=== PATIENT | female | born 1945 | race Two or more races ===

== ENCOUNTER → 2017-02-26 | Outpatient (CLI) | payer MEDICARE ==
[~2017-02-26] MED LIST: ANAS1TAB PO; GABA-282 PO; LISI10TA4 PO; MULTCAP8 PO
--- NOTE | 2017-02-26 10:42 | REP ---
LEFT KNEE, FIVE VIEWS: HISTORY: Pain. There is no acute fracture or dislocation. There is marked narrowing of the joint spaces with associated osteophyte formation. There is very minimal lateral subluxation of the patella. Ossified densities are present lateral to the distal femur. This represents ligamentous or tendon calcification. IMPRESSION: Degenerative change as described above.
== END ==
LOC: M CLY 09:03
PROVIDERS: ATTEND Nurse Practitioner
DX: M17.12 Unilateral primary osteoarthritis, left knee (principal)
CPT/HCPCS: 73564; G0463

== ENCOUNTER → 2017-03-26 | Outpatient (REF) | payer MEDICARE, BC | LOC: M SFHCCLAY 14:16 | PROVIDERS: ATTEND Nurse Practitioner | DX: R35.0 Frequency of micturition (principal) | CPT/HCPCS: 81002; 87086; G0463 ==

== ENCOUNTER → 2017-04-24 | Outpatient (REF) | payer MEDICARE, BC ==
[2017-04-24 20:44] LABS: BACTERIA, URINE SMALL AMOUNT; RBC, URINE NONE SEEN /hpf (0-3); SQUAMOUS EPITHELIAL CELL URINE SMALL AMOUNT /hpf (SMALL AMT)
[2017-04-24 20:45] LABS: HYALINE CAST, URINE NONE SEEN /lpf (0-1); MICROSCOPIC EXAM PERFORMED
== END ==
LOC: M SMT 16:56
PROVIDERS: ATTEND Specialist
DX: N39.46 Mixed incontinence (principal)
CPT/HCPCS: 81015; 87086; G0463

== ENCOUNTER 2017-04-29 09:45 | Day surgery (SDC) | payer MEDICARE, BC ==
[~2017-04-29] VITALS: Ht 172.7 cm; Wt 105.2 kg
[~2017-04-29 09:45] MED LIST changes: +ACETAMINOPHEN 325 MG TAB PO PRN; +BSS with VANC/TOB/EPI for EYE CASES IR ONE; +CYCLOPENTOLATE 2% OPHTH SOLN 2ML BTL OD ONE; +HEALON DUET (HEALON 10MG/ML 0.55ML & HEALON ENDOCOAT 30MG/ML 0.85ML) As Ordered ONE; +LIDOCAINE 1% SDV 5 ML VIAL As Ordered ONE; +LIDOCAINE 3.5 % 1ML OPHTH TOPICAL GEL OU ONE; +MIDAZOLAM INJ 2 MG/2 ML VIAL (J2250) As Ordered ONE; +MOXIFLOXACIN IN BSS 0.25MG/0.25ML INTRACAMERAL INJ (OR EYE ONLY)(J2280) As Ordered ONE; +OFLOXACIN 0.3 % (OCUFLOX) OPTH SOL 5ML OD ONE; +PHENYLEPHRINE 2.5% OPHTH SOL 2ML OD ONE; +POVIDONE-IODINE 5% OPHTH PREP SOL 30ML As Ordered ONE; +PROPARACAINE 0.5% OPHTH SOL 15ML OD PRN; +TRIAMCINOLONE PRES FR 40 MG/ML 1ML(TRIESENCE)(OR EYE ONLY)(J3300 PER 1MG) As Ordered ONE; +TROPICAMIDE 1% OPHTH SOLN 2ML OD ONE
[2017-04-29] MEDS ORDERED: D5W/0.2% SODIUM CHLORIDE 250 ML IV ONE (10:00)
[2017-04-29] MEDS ORDERED: ACETYLCHOLINE OPHTH SOLN 1% 2ML (MIOCHOL-E) As Ordered ONE (12:28)
[2017-04-29] MEDS ORDERED: fentaNYL 100 MCG/2 ML INJECTION (J3010) As Ordered ONE (12:52)
[2017-04-29] MEDS ORDERED: KETOROLAC 0.5% OPHTH SOLN OD ONE (13:15)
[2017-04-29] MEDS ORDERED: AcetaZOLAMIDE 500 MG ER CAP PO ONE (13:15)
[2017-04-29] MEDS ORDERED: TRIMETHOBENZAMIDE 300 MG CAP PO PRN (13:15)
[2017-04-29 13:35] VITALS: BP 186/86
[2017-04-29] MEDS ORDERED: ONDANSETRON 4MG/2ML VIAL (J2405) IV PRN (13:45)
[2017-04-29] MEDS ORDERED: LR 1,000 ML IV SCH (13:45)
== END 2017-04-29 13:48 | disposition home or self-care (01) ==
LOC: M SDC 09:45
PROVIDERS: ATTEND Ophthalmology
DX: H26.9 Unspecified cataract (principal); I10 Essential (primary) hypertension; F32.9 Major depressive disorder, single episode, unspecified; C50.911 Malignant neoplasm of unspecified site of right female breast; C50.912 Malignant neoplasm of unspecified site of left female breast; K57.32 Diverticulitis of large intestine without perforation or abscess without bleeding; M12.9 Arthropathy, unspecified; Z90.710 Acquired absence of both cervix and uterus; Z79.899 Other long term (current) drug therapy; Z78.0 Asymptomatic menopausal state
CPT/HCPCS: 66984; J2250; J2280; J3300; V2632

== ENCOUNTER 2017-05-07 12:11 | Day surgery (SDC) | payer MEDICARE, BC ==
[~2017-05-07] VITALS: Ht 172.7 cm; Wt 105.2 kg
[~2017-05-07 12:11] MED LIST changes: +ACETAMINOPHEN 325 MG TAB PO PRN; +BSS with VANC/TOB/EPI for EYE CASES IR ONE; +CYCLOPENTOLATE 2% OPHTH SOLN 2ML BTL OS ONE; +HEALON DUET (HEALON 10MG/ML 0.55ML & HEALON ENDOCOAT 30MG/ML 0.85ML) As Ordered ONE; +LIDOCAINE 1% SDV 5 ML VIAL As Ordered ONE; +LIDOCAINE 3.5 % 1ML OPHTH TOPICAL GEL OU ONE; +LR 1,000 ML IV ONE; +MOXIFLOXACIN IN BSS 0.25MG/0.25ML INTRACAMERAL INJ (OR EYE ONLY)(J2280) As Ordered ONE; +OFLOXACIN 0.3 % (OCUFLOX) OPTH SOL 5ML OS ONE; +PHENYLEPHRINE 2.5% OPHTH SOL 2ML OS ONE; +POVIDONE-IODINE 5% OPHTH PREP SOL 30ML As Ordered ONE; +PROPARACAINE 0.5% OPHTH SOL 15ML OS PRN; +TRIAMCINOLONE PRES FR 40 MG/ML 1ML(TRIESENCE)(OR EYE ONLY)(J3300 PER 1MG) As Ordered ONE; +TROPICAMIDE 1% OPHTH SOLN 2ML OS ONE
[2017-05-07] MEDS ORDERED: LIDOCAINE 2% W/EPIN INJ 20ML **PRES FREE As Ordered ONE (12:50)
[2017-05-07] MEDS ORDERED: MIDAZOLAM INJ 2 MG/2 ML VIAL (J2250) As Ordered ONE (14:20)
[2017-05-07] MEDS ORDERED: fentaNYL 100 MCG/2 ML INJECTION (J3010) As Ordered ONE (14:21)
[2017-05-07] MEDS ORDERED: ACETYLCHOLINE OPHTH SOLN 1% 2ML (MIOCHOL-E) As Ordered ONE (14:58)
[2017-05-07] MEDS ORDERED: AcetaZOLAMIDE 500 MG ER CAP PO ONE (15:30)
[2017-05-07] MEDS ORDERED: ONDANSETRON 4MG/2ML VIAL (J2405) IV PRN (15:30)
[2017-05-07] MEDS ORDERED: TRIMETHOBENZAMIDE 300 MG CAP PO PRN (15:30)
[2017-05-07] MEDS ORDERED: LR 1,000 ML IV SCH (15:30)
[2017-05-07] MEDS ORDERED: KETOROLAC 0.5% OPHTH SOLN OS ONE (15:30)
[2017-05-07] MEDS ORDERED: LIDOCAINE 4% INJ 5 ML AMP OU ONE (15:38)
[2017-05-07 15:40] VITALS: BP 185/86
== END 2017-05-07 16:00 | disposition home or self-care (01) ==
LOC: M SDC 12:11
PROVIDERS: ATTEND Ophthalmology
DX: H26.9 Unspecified cataract (principal); I10 Essential (primary) hypertension; K57.32 Diverticulitis of large intestine without perforation or abscess without bleeding; M12.9 Arthropathy, unspecified; F32.9 Major depressive disorder, single episode, unspecified; C50.911 Malignant neoplasm of unspecified site of right female breast; Z79.899 Other long term (current) drug therapy; Z90.710 Acquired absence of both cervix and uterus
CPT/HCPCS: 66984; 80053; 80061; 84443; 85027; J2250; J2280; J3010; J3300; V2632

== ENCOUNTER → 2017-05-07 | Outpatient (REF) | payer MEDICARE, BC ==
[~2017-05-07] MED LIST changes: -ACETAMINOPHEN 325 MG TAB PO PRN; -BSS with VANC/TOB/EPI for EYE CASES IR ONE; -CYCLOPENTOLATE 2% OPHTH SOLN 2ML BTL OD ONE; -HEALON DUET (HEALON 10MG/ML 0.55ML & HEALON ENDOCOAT 30MG/ML 0.85ML) As Ordered ONE; -LIDOCAINE 1% SDV 5 ML VIAL As Ordered ONE; -LIDOCAINE 3.5 % 1ML OPHTH TOPICAL GEL OU ONE; -MIDAZOLAM INJ 2 MG/2 ML VIAL (J2250) As Ordered ONE; -MOXIFLOXACIN IN BSS 0.25MG/0.25ML INTRACAMERAL INJ (OR EYE ONLY)(J2280) As Ordered ONE; -OFLOXACIN 0.3 % (OCUFLOX) OPTH SOL 5ML OD ONE; -PHENYLEPHRINE 2.5% OPHTH SOL 2ML OD ONE; -POVIDONE-IODINE 5% OPHTH PREP SOL 30ML As Ordered ONE; -PROPARACAINE 0.5% OPHTH SOL 15ML OD PRN; -TRIAMCINOLONE PRES FR 40 MG/ML 1ML(TRIESENCE)(OR EYE ONLY)(J3300 PER 1MG) As Ordered ONE; -TROPICAMIDE 1% OPHTH SOLN 2ML OD ONE
[2017-05-07 11:36] LABS: MEAN CORPUSCULAR HEMOGLOBIN 33.1 pg (27.0-33.0); MEAN CORPUSCULAR HGB CONC 33.8 g/dl (32.0-36.5); WHITE BLOOD COUNT 6.1 K/mm3 (4.0-10.0)
[2017-05-07 12:26] LABS: ALBUMIN 3.2 GM/DL (3.2-5.2); ALKALINE PHOSPHATASE 76 U/L (45-117); ALT/SGPT 19 U/L (12-78); ANION GAP 8 MEQ/L (8-16); AST/SGOT 11 U/L (15-37); BILIRUBIN,TOTAL 0.3 MG/DL (0.2-1.0); BLOOD UREA NITROGEN 15 MG/DL (7-18); CALCIUM LEVEL 8.2 MG/DL (8.8-10.2); CARBON DIOXIDE LEVEL 30 MEQ/L (21-32); CHLORIDE LEVEL 109 MEQ/L (98-107); CHOLESTEROL LEVEL 125 MG/DL (<200); CREATININE FOR GFR 0.66 MG/DL (0.55-1.02); GLOMERULAR FILTRATION RATE > 60.0 (>39); GLUCOSE, FASTING 84 MG/DL (83-110); POTASSIUM SERUM 4.1 MEQ/L (3.5-5.1); SODIUM LEVEL 147 MEQ/L (136-145); TOTAL PROTEIN 6.4 GM/DL (6.4-8.2); TRIGLYCERIDES LEVEL 113 MG/DL (<150)
== END ==
LOC: M SFHCCLAY 08:25
PROVIDERS: ATTEND Nurse Practitioner
DX: I10 Essential (primary) hypertension (principal)

== ENCOUNTER → 2017-05-17 | Outpatient (CLI) | payer MEDICARE, BC ==
[~2017-05-17] MED LIST changes: -ACETAMINOPHEN 325 MG TAB PO PRN; -BSS with VANC/TOB/EPI for EYE CASES IR ONE; -CYCLOPENTOLATE 2% OPHTH SOLN 2ML BTL OS ONE; -HEALON DUET (HEALON 10MG/ML 0.55ML & HEALON ENDOCOAT 30MG/ML 0.85ML) As Ordered ONE; -LIDOCAINE 1% SDV 5 ML VIAL As Ordered ONE; -LIDOCAINE 3.5 % 1ML OPHTH TOPICAL GEL OU ONE; -LR 1,000 ML IV ONE; -MOXIFLOXACIN IN BSS 0.25MG/0.25ML INTRACAMERAL INJ (OR EYE ONLY)(J2280) As Ordered ONE; -OFLOXACIN 0.3 % (OCUFLOX) OPTH SOL 5ML OS ONE; -PHENYLEPHRINE 2.5% OPHTH SOL 2ML OS ONE; -POVIDONE-IODINE 5% OPHTH PREP SOL 30ML As Ordered ONE; -PROPARACAINE 0.5% OPHTH SOL 15ML OS PRN; -TRIAMCINOLONE PRES FR 40 MG/ML 1ML(TRIESENCE)(OR EYE ONLY)(J3300 PER 1MG) As Ordered ONE; -TROPICAMIDE 1% OPHTH SOLN 2ML OS ONE
--- NOTE | 2017-05-17 08:31 | REPMRS ---
Patient History The patient states she had a clinical breast exam in May 2016. Patient has history of bilateral breast cancer at age 67. Family history of unknown cancer in mother. Taking tamoxifen for 6 months. Digital Mammo Diagnostic Bilateral: May 17, 2017 - Exam #: [id number] Bilateral CC and MLO view(s) were taken. Technologist: Savannah Leon, Technologist Prior study comparison: May 14, 2016, digital mammo diagnostic bilateral performed at [facility]. May 11, 2015, bilateral digital mammo screening bilat performed at [facility]. April 2013, bilateral digital mammo screening bilat, performed at [facility]. FINDINGS: There are scattered fibroglandular densities. There is diffuse skin and stromal thickening bilaterally post treatment for bilateral breast cancer. There are stable areas of postoperative fibrosis in the upper outer quadrant on each side. There has been no change in the appearance of the mammogram from the prior studies. There is a mild amount of scattered fibroglandular density which is fairly symmetric. There is no interval development of dominant mass, architectural distortion, or clustered microcalcification suggestive of malignancy. ASSESSMENT: BI-RADS/ACR category 2 mammogram. Benign finding(s). Recommendation Routine screening mammogram in 1 year (for women over age 40). This mammogram was interpreted with the aid of an FDA-approved computer-aided dectection system. Electronically Signed By: Mg Miramontes MD 05/17/17 0831
== END ==
LOC: M RAD 07:47
PROVIDERS: ATTEND Family Medicine
DX: Z85.3 Personal history of malignant neoplasm of breast (principal); Z92.3 Personal history of irradiation; Z92.21 Personal history of antineoplastic chemotherapy; Z80.0 Family history of malignant neoplasm of digestive organs

== ENCOUNTER → 2018-03-03 | Outpatient (CLI) | payer MEDICARE, BC ==
[2018-03-03 10:44] LABS: HEMATOCRIT 41.3 % (36.0-47.0); HEMOGLOBIN 13.6 g/dl (12.0-15.5); MEAN CORPUSCULAR HEMOGLOBIN 31.7 pg (27.0-33.0); MEAN CORPUSCULAR HGB CONC 32.9 g/dl (32.0-36.5); MEAN CORPUSCULAR VOLUME 96.3 fl (80.0-96.0); PLATELET COUNT, AUTOMATED 203 10^3/uL (150-450); RED BLOOD COUNT 4.29 10^6/uL (4.00-5.40); RED CELL DISTRIBUTION WIDTH 11.9 % (11.5-14.5); WHITE BLOOD COUNT 6.5 10^3/uL (4.0-10.0)
[2018-03-03 10:58] LABS: INR 0.97
[2018-03-03 11:08] LABS: ERYTHROCYTE SEDIMENTATION RATE 40 mm/hr (0-30)
[2018-03-03 11:16] LABS: ALBUMIN 3.5 GM/DL (3.2-5.2); ALBUMIN/GLOBULIN RATIO 1.03 (1.00-1.93); ALKALINE PHOSPHATASE 84 U/L (45-117); ALT/SGPT 20 U/L (12-78); ANION GAP 6 MEQ/L (8-16); AST/SGOT 12 U/L (7-37); BILIRUBIN,TOTAL 0.4 MG/DL (0.2-1.0); BLOOD UREA NITROGEN 25 MG/DL (7-18); CARBON DIOXIDE LEVEL 30 MEQ/L (21-32); CHLORIDE LEVEL 106 MEQ/L (98-107); CREATININE FOR GFR 0.72 MG/DL (0.55-1.30); GLOMERULAR FILTRATION RATE > 60.0 (>39); GLUCOSE, FASTING 98 MG/DL (70-100); POTASSIUM SERUM 4.5 MEQ/L (3.5-5.1); SODIUM LEVEL 142 MEQ/L (136-145); TOTAL PROTEIN 6.9 GM/DL (6.4-8.2)
== END ==
LOC: M ADMPAT 09:10
DX: Z01.818 Encounter for other preprocedural examination (principal); M25.562 Pain in left knee
CPT/HCPCS: 71046

== ENCOUNTER 2018-03-18 09:21 | Inpatient (IN) | payer MEDICARE, BC ==
[2018-03-18] MEDS ORDERED: LIDOCAINE 1% MDV 20ML VIAL SQ (09:45)
[2018-03-18] MEDS: ACETAMINOPHEN 500 MG TAB PO (10:31)
[2018-03-18] MEDS: LR 1,000 ML IV ×3 (10:31→18:22)
[2018-03-18] MEDS ORDERED: MIDAZOLAM INJ 2 MG/2 ML VIAL (J2250) As Ordered ×2 (10:45→10:56)
[2018-03-18] MEDS ORDERED: fentaNYL 100 MCG/2 ML INJECTION (J3010) As Ordered ×2 (10:45→13:39)
[2018-03-18] MEDS: MIDAZOLAM INJ 2 MG/2 ML VIAL (J2250) IV (10:50)
[2018-03-18] MEDS: fentaNYL 100 MCG/2 ML INJECTION (J3010) IV (10:50)
[2018-03-18] MEDS ORDERED: PROPOFOL 200 MG/20 ML VIAL As Ordered ×4 (10:55→14:06)
[2018-03-18] MEDS ORDERED: BUPIVACAINE/DEXTROSE 0.75% 2 ML AMP As Ordered (12:34)
[2018-03-18] MEDS ORDERED: dexameTHASONE 10 MG/1 ML VIAL PRES.FREE (J1100) (13:04)
[2018-03-18] MEDS ORDERED: LIDOCAINE 1% MDV 20ML VIAL (13:04)
[2018-03-18] MEDS ORDERED: ROPIvacaine 0.5% 30 ML INJECTION (J2795 PER 1MG) (13:04)
[2018-03-18] MEDS: ceFAZolin 1GM INJ (J0690 PER 500MG) As Ordered (13:12)
[2018-03-18] MEDS: EPINEPHrine INJ 1 MG/ML 1ML AMP As Ordered (13:24)
[2018-03-18] MEDS: TRANEXAMIC ACID 100 MG/ML 10ML VIAL As Ordered (13:24)
[2018-03-18] MEDS: BUPIVACAINE HCL 0.25% 10 ML VIAL As Ordered (13:50)
[2018-03-18] MEDS: BUPIVACAINE LIPOSOME/PF 1.3% 20 ML VIAL (13.3MG/ML)(EXPAREL) As Ordered (13:50)
[2018-03-18] MEDS ORDERED: ePHEDrine SULFATE 25 MG/5 ML(5MG/ML) SYRINGE As Ordered (14:10)
[2018-03-18] MEDS ORDERED: MORPHINE 1MG/ML IN 0.9% NACL 100ML IV BAG As Ordered (14:52)
[2018-03-18] MEDS ORDERED: diphenhydrAMINE INJ 50MG/ML VIAL (J1200) IV (15:00)
[2018-03-18] MEDS ORDERED: NALBUPHINE HCL 10 MG/ML AMP (J2300) IV (15:00)
[2018-03-18] MEDS ORDERED: NALOXONE INJ 0.4 MG/1 ML VIAL (J2310) IV (15:00)
[2018-03-18] MEDS ORDERED: FLEET ENEMA PR (15:00)
[2018-03-18] MEDS ORDERED: PERCOCET 5MG/325MG TAB PO (15:00)
[2018-03-18] MEDS ORDERED: HYDROMORPHONE HCL 0.5 MG/ 0.5 ML SYRINGE (J1170 PER 1) IV (15:00)
[2018-03-18] MEDS ORDERED: ONDANSETRON 4MG/2ML VIAL (J2405) IV ×2 (15:00)
[2018-03-18] MEDS ORDERED: fentaNYL 100 MCG/2 ML INJECTION (J3010) IV (15:00)
[2018-03-18] MEDS ORDERED: ACETAMINOPHEN TAB 650MG DOSE (2X325MG) PO (15:00)
[2018-03-18] MEDS ORDERED: EPIDURAL/PCA KEYS XX (15:00)
[2018-03-18] MEDS ORDERED: MORPHINE 1MG/ML IN 0.9% NACL 100ML IV BAG IV (15:00)
[2018-03-18] MEDS: LISINOPRIL 10 MG TAB PO (18:21)
[2018-03-18] MEDS: ANASTROZOLE 1 MG PO (23:43)
[2018-03-19] MEDS ORDERED: PERCOCET 5MG/325MG TAB PO (06:30)
[2018-03-19 06:51] LABS: HEMATOCRIT 35.8 % (36.0-47.0); HEMOGLOBIN 11.7 g/dl (12.0-15.5); MEAN CORPUSCULAR HEMOGLOBIN 32.2 pg (27.0-33.0); MEAN CORPUSCULAR HGB CONC 32.7 g/dl (32.0-36.5); MEAN CORPUSCULAR VOLUME 98.6 fl (80.0-96.0); PLATELET COUNT, AUTOMATED 177 10^3/uL (150-450); RED BLOOD COUNT 3.63 10^6/uL (4.00-5.40); RED CELL DISTRIBUTION WIDTH 11.8 % (11.5-14.5); WHITE BLOOD COUNT 10.2 10^3/uL (4.0-10.0)
[2018-03-19 07:06] LABS: ANION GAP 6 MEQ/L (8-16); BLOOD UREA NITROGEN 16 MG/DL (7-18); CALCIUM LEVEL 8.5 MG/DL (8.8-10.2); CARBON DIOXIDE LEVEL 31 MEQ/L (21-32); CHLORIDE LEVEL 106 MEQ/L (98-107); CREATININE FOR GFR 0.81 MG/DL (0.55-1.30); GLOMERULAR FILTRATION RATE > 60.0 (>39); GLUCOSE, FASTING 111 MG/DL (70-100); POTASSIUM SERUM 4.3 MEQ/L (3.5-5.1); SODIUM LEVEL 143 MEQ/L (136-145)
[2018-03-19] MEDS: SENOKOT S TAB PO ×2 (09:02→19:56)
[2018-03-19] MEDS: MOM 30ML SUSPENSION UDC PO (09:02)
[2018-03-19] MEDS: PERCOCET 5MG/325MG TAB PO ×4 (09:02→22:27)
[2018-03-19] MEDS: MIRALAX *UNIT DOSE* 17GM PACKET PO (09:02)
[2018-03-19] MEDS: LISINOPRIL 10 MG TAB PO (09:02)
[2018-03-19] MEDS: ANASTROZOLE 1 MG PO (18:03)
[2018-03-19] MEDS: RIVAROXABAN 10 MG TAB (XARELTO) PO (18:04)
[2018-03-19] MEDS: ONDANSETRON 4 MG TAB (S0181) PO (19:56)
[2018-03-20] MEDS: PERCOCET 5MG/325MG TAB PO ×2 (03:44→09:28)
[2018-03-20 07:10] LABS: HEMATOCRIT 33.3 % (36.0-47.0); HEMOGLOBIN 10.8 g/dl (12.0-15.5); MEAN CORPUSCULAR HGB CONC 32.4 g/dl (32.0-36.5); MEAN CORPUSCULAR VOLUME 98.5 fl (80.0-96.0); PLATELET COUNT, AUTOMATED 175 10^3/uL (150-450); RED BLOOD COUNT 3.38 10^6/uL (4.00-5.40); RED CELL DISTRIBUTION WIDTH 12.1 % (11.5-14.5); WHITE BLOOD COUNT 10.6 10^3/uL (4.0-10.0)
[2018-03-20 07:19] LABS: ANION GAP 5 MEQ/L (8-16); BLOOD UREA NITROGEN 20 MG/DL (7-18); CALCIUM LEVEL 8.3 MG/DL (8.8-10.2); CARBON DIOXIDE LEVEL 33 MEQ/L (21-32); CHLORIDE LEVEL 101 MEQ/L (98-107); CREATININE FOR GFR 0.77 MG/DL (0.55-1.30); GLOMERULAR FILTRATION RATE > 60.0 (>39); GLUCOSE, FASTING 101 MG/DL (70-100); POTASSIUM SERUM 4.5 MEQ/L (3.5-5.1); SODIUM LEVEL 139 MEQ/L (136-145)
[2018-03-20] MEDS: MOM 30ML SUSPENSION UDC PO (09:27)
[2018-03-20] MEDS: MIRALAX *UNIT DOSE* 17GM PACKET PO (09:28)
[2018-03-20] MEDS: SENOKOT S TAB PO (09:28)
[2018-03-20] MEDS: LISINOPRIL 10 MG TAB PO (09:28)
== END 2018-03-20 13:30 | disposition home health service (06) | DRG 470 ==
LOC: M OR 09:21 → M MS5PR 15:30
PROC: 0SRD0J9 Replacement of Left Knee Joint with Synthetic Substitute, Cemented, Open Approach (ICD-10-PCS; principal; 2018-03-18 12:30)
DX: M17.12 Unilateral primary osteoarthritis, left knee (principal); I10 Essential (primary) hypertension; F32.9 Major depressive disorder, single episode, unspecified; Z85.3 Personal history of malignant neoplasm of breast; G25.81 Restless legs syndrome; K57.30 Diverticulosis of large intestine without perforation or abscess without bleeding; I25.2 Old myocardial infarction; Z79.899 Other long term (current) drug therapy; K21.9 Gastro-esophageal reflux disease without esophagitis

== ENCOUNTER → 2018-04-17 | Outpatient (CLI) | payer MEDICARE, BC ==
[~2018-04-17] MED LIST changes: -ANAS1TAB PO; -GABA-282 PO; -LISI10TA4 PO; -MULTCAP8 PO; +PROHANCE 279.3MG/ML 15ML VIAL (A9576) As Ordered; +PROHANCE 279.3MG/ML 5ML VIAL (A9576) As Ordered
== END ==
LOC: M RAD 08:38
DX: Z85.3 Personal history of malignant neoplasm of breast (principal); Z17.0 Estrogen receptor positive status [ER+]; Z79.811 Long term (current) use of aromatase inhibitors
CPT/HCPCS: A9576

== ENCOUNTER → 2018-05-20 | Outpatient (CLI) | payer MEDICARE, BC | LOC: M RAD 09:34 | DX: C50.911 Malignant neoplasm of unspecified site of right female breast (principal) | CPT/HCPCS: 77066 ==

== ENCOUNTER → 2019-03-12 | Outpatient (REF) | payer MEDICARE, BC ==
[~2019-03-12] MED LIST changes: +ANAS1TAB2 PO; +GABA-843 PO; +LISI10TA4 PO; +MULTCAP8 PO; +PERC5TAB12 PO; -PROHANCE 279.3MG/ML 15ML VIAL (A9576) As Ordered; -PROHANCE 279.3MG/ML 5ML VIAL (A9576) As Ordered; +TOLT2TAB12 PO; +XARE10TA PO
[2019-03-12 17:18] LABS: ALBUMIN 3.8 GM/DL (3.2-5.2); ALT/SGPT 22 U/L (12-78); BILIRUBIN,TOTAL 0.4 MG/DL (0.2-1.0); BLOOD UREA NITROGEN 19 MG/DL (7-18); CALCIUM LEVEL 8.5 MG/DL (8.8-10.2); CARBON DIOXIDE LEVEL 31 MEQ/L (21-32); CHLORIDE LEVEL 105 MEQ/L (98-107); CHOLESTEROL LEVEL 156 MG/DL (<200); CREATININE FOR GFR 0.74 MG/DL (0.55-1.30); GLOMERULAR FILTRATION RATE > 60.0 (>39); GLUCOSE, FASTING 85 MG/DL (70-100); HDL CHOLESTEROL 40 MG/DL (>40); LDL CHOLESTEROL 84 MG/DL (<100); NON-HDL-C 116 MG/DL; POTASSIUM SERUM 4.3 MEQ/L (3.5-5.1); SODIUM LEVEL 141 MEQ/L (136-145); TOTAL PROTEIN 7.1 GM/DL (6.4-8.2); TRIGLYCERIDES LEVEL 162 MG/DL (<150)
== END ==
LOC: M SFHCCLAY 13:14
PROVIDERS: ATTEND Family Medicine
DX: I10 Essential (primary) hypertension (principal)
CPT/HCPCS: 80053; 80061; G0463

== ENCOUNTER → 2019-05-21 | Outpatient (CLI) | payer MEDICARE, BC ==
--- NOTE | 2019-05-21 10:00 | REPMRS ---
Patient History The patient states she had a clinical breast exam in March 2019.Patient has history of bilateral breast cancer at age 67. Family history of unknown cancer in mother. Taking tamoxifen for 6 years. 3D TOMOSYNTHESIS WAS PERFORMED. Digital Mammo Screening Bilat: May 21, 2019 - Exam #: [id number] Bilateral CC and MLO view(s) were taken. Technologist: Riya Kaba, Technologist Prior study comparison: May 20, 2018, digital mammo diagnostic bilateral performed at [facility]. May 17, 2017, digital mammo diagnostic bilateral performed at [facility]. FINDINGS: The breast tissue is heterogeneously dense. This may lower the sensitivity of mammography. There is no evidence of cancer on this mammogram. There are stable bilateral post treatment changes. No significant changes when compared with prior studies. Assessment: BI-RADS/ACR category 2 mammogram. Benign Findings. Recommendation Routine screening mammogram of both breasts in 1 year (for women over age 40). This mammogram was interpreted with the aid of an FDA-approved computer-aided dectection system. Electronically Signed By: Juan Patricio MD 05/21/19 0959
== END ==
LOC: M RAD 08:53
PROVIDERS: ATTEND Family Medicine
DX: Z12.31 Encounter for screening mammogram for malignant neoplasm of breast (principal); Z80.9 Family history of malignant neoplasm, unspecified; Z85.3 Personal history of malignant neoplasm of breast

== ENCOUNTER 2020-04-20 09:40 | Inpatient (IN) | payer MEDICARE, BC ==
[~2020-04-20 09:40] MED LIST changes: +ACETAMINOPHEN 500 MG TAB As Ordered ONE; +ACETAMINOPHEN 500 MG TAB ONE; +LIDOCAINE 1% MDV 20ML VIAL ONE; +LIDOCAINE 2% 100MG/5ML SDV (FOR ANES.) As Ordered ONE; +MIDAZOLAM INJ 2MG/2ML VIAL (J2250 PER 1MG) As Ordered ONE; +MIDAZOLAM INJ 2MG/2ML VIAL (J2250 PER 1MG) ONE; +ROPIvacaine 0.5% 30ML INJECTION (J2795 PER 1MG) ONE; +ceFAZolin 2 GM/D5W 50 ML IV BAG (J0690 PER 500MG) As Ordered ONE; +ceFAZolin 2 GM/D5W 50 ML IV BAG (J0690 PER 500MG) ONE; +dexameTHASONE 10MG/1ML VIAL PRES.FREE (J1100 PER 1MG) ONE; +fentaNYL 100 MCG/2 ML INJECTION (J3010) As Ordered ONE; +fentaNYL 100 MCG/2 ML INJECTION (J3010) ONE; +propofoL 200 MG/20 ML VIAL As Ordered ONE
[2020-04-20] MEDS ORDERED: EPINEPHrine INJ 1 MG/ML 1ML AMP As Ordered ONE (10:03)
[2020-04-20] MEDS ORDERED: BUPIVACAINE HCL 0.25% 10ML VIAL As Ordered ONE (10:03)
[2020-04-20] MEDS ORDERED: ceFAZolin 1GM VIAL (J0690 PER 500MG) As Ordered ONE (10:03)
[2020-04-20] MEDS ORDERED: BUPIVACAINE LIPOSOME/PF 1.3% 20ML VIAL (13.3MG/ML)(EXPAREL)(C9290 PER1MG) As Ordered ONE (10:03)
[2020-04-20] MEDS ORDERED: TRANEXAMIC ACID 100 MG/ML 10ML VIAL As Ordered ONE (10:05)
[2020-04-20] MEDS ORDERED: propofoL 200 MG/20 ML VIAL As Ordered ONE ×2 (10:55→11:26)
[2020-04-20] MEDS ORDERED: MIDAZOLAM INJ 2MG/2ML VIAL (J2250 PER 1MG) As Ordered ONE (10:57)
[2020-04-20] MEDS ORDERED: ePHEDrine SULFATE 25 MG/5 ML(5MG/ML) SYRINGE As Ordered ONE (10:59)
[2020-04-20] MEDS ORDERED: PHENYLephrine HCL 500 MCG/5 ML (100MCG/ML) SYRINGE (J2370) As Ordered ONE (11:15)
[2020-04-20] MEDS ORDERED: PERCOCET 5MG/325MG TAB As Ordered ONE ×2 (17:07→22:57)
[2020-04-20] MEDS ORDERED: ceFAZolin 2 GM/D5W 50 ML IV BAG (J0690 PER 500MG) As Ordered ONE (17:07)
[2020-04-20] MEDS ORDERED: PERCOCET 5MG/325MG TAB ONE ×2 (17:07→22:57)
[2020-04-20] MEDS ORDERED: ceFAZolin 2 GM/D5W 50 ML IV BAG (J0690 PER 500MG) ONE (17:07)
[2020-04-20] MEDS ORDERED: MORPHINE 2 MG/ML 1ML VIAL (J2270) As Ordered ONE ×2 (18:39→21:15)
[2020-04-20] MEDS ORDERED: MORPHINE 2 MG/ML 1ML VIAL (J2270) ONE ×2 (18:39→21:15)
[2020-04-20] MEDS ORDERED: ASPIRIN 81 MG CHEW TABLET As Ordered ONE (20:50)
[2020-04-20] MEDS ORDERED: ASPIRIN 81 MG CHEW TABLET ONE (21:15)
[2020-04-21] MEDS ORDERED: ceFAZolin 2 GM/D5W 50 ML IV BAG (J0690 PER 500MG) As Ordered ONE ×2 (00:58→07:20)
[2020-04-21] MEDS ORDERED: ceFAZolin 2 GM/D5W 50 ML IV BAG (J0690 PER 500MG) ONE ×2 (00:58→07:20)
[2020-04-21] MEDS ORDERED: MORPHINE 2 MG/ML 1ML VIAL (J2270) ONE (01:23)
[2020-04-21] MEDS ORDERED: MORPHINE 2 MG/ML 1ML VIAL (J2270) As Ordered ONE (01:23)
[2020-04-21] MEDS ORDERED: ASPIRIN 81 MG ENTERIC TAB ONE (07:20)
[2020-04-21] MEDS ORDERED: PERCOCET 5MG/325MG TAB ONE ×2 (07:20→12:19)
[2020-04-21] MEDS ORDERED: lisinopriL 10 MG TAB ONE (07:20)
[2020-04-21] MEDS ORDERED: lisinopriL 10 MG TAB As Ordered ONE (07:20)
[2020-04-21] MEDS ORDERED: ASPIRIN 81 MG ENTERIC TAB As Ordered ONE (07:21)
[2020-04-21] MEDS ORDERED: PERCOCET 5MG/325MG TAB As Ordered ONE ×2 (07:22→12:19)
[2020-04-21] MEDS ORDERED: SOLIFENACIN 5 MG TAB ONE (11:19)
--- NOTE | 2020-06-07 09:49 | REP ---
RIGHT KNEE SERIES: TWO VIEWS HISTORY: Postop. Report is delayed due to a malware attack on this facility. FINDINGS: Portably obtained AP and cross-table lateral views of the right knee demonstrate right knee arthroplasty components in good position, relative to each other, and their match-e-be-nash-she-wish band bones. Anterior skin mell are seen. Intraarticular and periarticular soft tissue emphysema is present. IMPRESSION: Status post right knee arthroplasty. MTDD
[2020-06-18 11:24] LABS: HEMATOCRIT 34.8 % (36.0-47.0); HEMOGLOBIN 11.5 g/dl (12.0-15.5); MEAN CORPUSCULAR HEMOGLOBIN 32.9 pg (27.0-33.0); MEAN CORPUSCULAR VOLUME 99.4 fl (80.0-96.0); PLATELET COUNT, AUTOMATED 217 10^3/uL (150-450); WHITE BLOOD COUNT 11.8 10^3/uL (4.0-10.0)
--- NOTE | 2020-06-23 11:38 | RO ---
DATE OF OPERATION: 04/20/2020 PREOPERATIVE DIAGNOSIS: Right knee degenerative arthritis. POSTOPERATIVE DIAGOSIS: Right knee degenerative arthritis. PROCEDURE: Right total knee arthroplasty using a size 5 cruciate-retaining Attune femoral component cemented with a size 5 tibial tray and a 6-mm rotating platform polyethylene insert and a 35-mm polyethylene button. All components were made by [employer]. SURGEON: Eliud Blackwood M.D. INSURANCE SALES AGENT: Ms. Monica De La Fuente ANESTHESIA: Spinal with right femoral nerve block. COMPLICATIONS: None. SPECIMENS: Joint surface. ESTIMATED BLOOD LOSS: 20 mL. DESCRIPTION OF PROCEDURE: Antibiotics were given intravenously preoperatively. Successful right femoral nerve block and then spinal anesthetic was induced. Tourniquet placed to the right upper thigh and not inflated. Right lower extremity was carefully prepped and draped in the usual sterile fashion and then elevated. Then appropriate time-out and tourniquet was inflated to 250 mmHg for 59 minutes. A longitudinal incision was made for a medial parapatellar approach to the knee. Bovee cautery was used to coagulate crossing vessels. Medial parapatellar arthrotomy was performed. Subperiosteal dissection along the proximal, medial, and lateral tibial plateau was performed. The patella was everted and then the knee flexed. Drill was placed down the center of the femoral canal followed by the intramedullary bruce. The distal femoral cutting jig set at a 5 degree valgus cut and 9 mm resection level for a right knee. The block was pinned into position and distal femoral cut performed. AP sizing jig measured for a size 5. The block was set with 3 degrees of external rotation and then the pinhole was placed and the 4-in-1 block applied. Then anteroposterior chamfer cuts were performed taking great care to protect the surrounding soft tissues. The sulcus osteotomy jig was applied and the sulcus osteotomy was performed. We then exposed the proximal tibia using the extramedullary alignment and jig to estimate being parallel to the mechanical axis of the tibia referencing off the medial tibial condyle a 4-mm resection level. The block was pinned into position. A secondary check with the extramedullary bruce confirmed that we appeared to be parallel. Thus, the proximal tibial osteotomy was performed. [employer]ina automotive glass installer was then placed medially and we performed a complete lateral meniscectomy with debridement of posterolateral osteophytes. We then placed the lamina automotive glass installer laterally and performed a completion medial meniscectomy and debridement of posteromedial osteophytes. Spacer block 6 mm actually had a good stability symmetrically in both flexion and in extension, as well as to varus valgus stress testing. We then exposed the proximal tibia and sized for a #5 tibial tray, which was pinned into position followed by the reamer and the broach. Then the trial polyethylene was placed followed by the trial femoral component. Brought the knee into extension, everted the patella, and performed a patella osteotomy sized for a 35 button. Lug hole was drilled, trial placed, and the patellofemoral tracking was anatomic. We then drilled the lug holes for the femur, removed all the trial components, and prepared the bony surfaces for cementing. First we placed Exparel in the subperiosteal tissues around the distal femur and the proximal tibia. Then Ms. Monica De La Fuente, my certified nursing assistant, mixed the cement on the back table as I prepared the bony surfaces for cementing with a copious amount of pulsatile lavage irrigant solution. Ms. Monica De La Fuente was also critical to the success of this difficult procedure by helping with appropriate soft tissue retraction, help to manipulate the knee, help to mix the cement, help to prepare the patient, and help to close the wound amongst many other tasks to allow me to perform the operation smoothly, efficiency, and safely. We then cemented the tibial tray and removed excess cement and placed the polyethylene. We then cemented the femoral component, removed excess cement, and brought the knee out into full extension. We cemented the patellar button and removed excess cement after applying the clamp, and then held the knee in full extension with the clamp until the cement hardened. As we were awaiting this, we copiously pulsatile lavaged and irrigated out the knee joint as we did several times throughout the surgery. We then placed tranexamic acid in the knee, closed the apex of the arthrotomy with two #1 PDS sutures, and then the medial parapatellar area was closed with a #1 PDS suture. Then we closed the capsule with a double arm running STRATAFIX and then released the tourniquet. We copious irrigated between layers, closed the deep subdermal tissues with 2-0 PDS sutures and then skin was closed with mell covered by an Optifoam and a dry sterile bulky dressing. She was then transferred to the recovery room in stable condition. There were no intraoperative complications. BRENT
[2020-07-11 16:41] LABS: BLOOD UREA NITROGEN 13 MG/DL (7-18); CARBON DIOXIDE LEVEL 29 MEQ/L (21-32); CHLORIDE LEVEL 107 MEQ/L (98-107); CREATININE FOR GFR 0.92 MG/DL (0.55-1.30); GLOMERULAR FILTRATION RATE > 60.0 (>39); GLUCOSE, FASTING 132 MG/DL (70-100); POTASSIUM SERUM 4.2 MEQ/L (3.5-5.1); SODIUM LEVEL 141 MEQ/L (136-145)
[2020-07-11 16:42] LABS: ALBUMIN 3.1 GM/DL (3.2-5.2); ALT/SGPT 25 U/L (12-78); BILIRUBIN,TOTAL 0.3 MG/DL (0.2-1.0); CALCIUM LEVEL 8.4 MG/DL (8.8-10.2); MAGNESIUM LEVEL 1.9 MG/DL (1.8-2.4); PHOSPHORUS LEVEL 3.8 MG/DL (2.5-4.9); TOTAL PROTEIN 6.1 GM/DL (6.4-8.2)
== END 2020-04-21 11:20 | disposition home or self-care (01) | DRG 470 ==
LOC: M MS5PR 09:40
PROVIDERS: ADMIT Orthopaedic Surgery; ATTEND Orthopaedic Surgery
PROC: 0SRC0J9 Replacement of Right Knee Joint with Synthetic Substitute, Cemented, Open Approach (ICD-10-PCS; principal; 2020-04-20)
DX: M17.11 Unilateral primary osteoarthritis, right knee (principal); I10 Essential (primary) hypertension; Z79.899 Other long term (current) drug therapy; Z85.3 Personal history of malignant neoplasm of breast; G25.81 Restless legs syndrome; R32 Unspecified urinary incontinence; K57.30 Diverticulosis of large intestine without perforation or abscess without bleeding; K21.9 Gastro-esophageal reflux disease without esophagitis

== ENCOUNTER → 2020-06-03 | Outpatient (CLI) | payer MEDICARE, BC ==
[~2020-06-03] MED LIST changes: -ACETAMINOPHEN 500 MG TAB As Ordered ONE; -ACETAMINOPHEN 500 MG TAB ONE; -LIDOCAINE 1% MDV 20ML VIAL ONE; -LIDOCAINE 2% 100MG/5ML SDV (FOR ANES.) As Ordered ONE; -MIDAZOLAM INJ 2MG/2ML VIAL (J2250 PER 1MG) As Ordered ONE; -MIDAZOLAM INJ 2MG/2ML VIAL (J2250 PER 1MG) ONE; -ROPIvacaine 0.5% 30ML INJECTION (J2795 PER 1MG) ONE; -ceFAZolin 2 GM/D5W 50 ML IV BAG (J0690 PER 500MG) As Ordered ONE; -ceFAZolin 2 GM/D5W 50 ML IV BAG (J0690 PER 500MG) ONE; -dexameTHASONE 10MG/1ML VIAL PRES.FREE (J1100 PER 1MG) ONE; -fentaNYL 100 MCG/2 ML INJECTION (J3010) As Ordered ONE; -fentaNYL 100 MCG/2 ML INJECTION (J3010) ONE; -propofoL 200 MG/20 ML VIAL As Ordered ONE
--- NOTE | 2020-06-04 09:50 | REPMRS ---
Patient History The patient states she has not had a clinical breast exam in over a year. Family history of unknown cancer in mother. Taking tamoxifen for 6 years. The patient has history of bilateral breast cancer at age 67. Digital Woman Screen Mammo: June 03, 2020 - Exam #: [id number] Bilateral CC and MLO view(s) were taken. Technologist: Savannah Leon, Technologist Prior study comparison: May 21, 2019, bilateral digital mammo screening bilat, performed at [facility]. May 20, 2018, digital mammo diagnostic bilateral, performed at [facility]. May 17, 2017, digital mammo diagnostic bilateral, performed at [facility]. FINDINGS: There are scattered fibroglandular densities. The Volpara volumetric breast density category is:B. There are stable post treatment changes in both breasts. There has been no change in the appearance of the mammogram from the prior studies. There is a mild amount of scattered fibroglandular density which is fairly symmetric. There is no interval development of dominant mass, architectural distortion, or grouped microcalcification suggestive of malignancy. 3-D tomosynthesis shows no additional findings. Assessment: BI-RADS/ACR category 2 mammogram. Benign Findings. Recommendation Routine screening mammogram of both breasts in 1 year (for women over age 40). This patient's Lifetime Breast Cancer Risk is estimated at %. This mammogram was interpreted with the aid of an FDA-approved computer-aided dectection system. Electronically Signed By: Mg Miramontes MD 06/04/20 4516
== END ==
LOC: M WHC 13:35
PROVIDERS: ATTEND Family Medicine
DX: Z12.31 Encounter for screening mammogram for malignant neoplasm of breast (principal); Z85.3 Personal history of malignant neoplasm of breast; Z80.9 Family history of malignant neoplasm, unspecified

== ENCOUNTER → 2021-02-23 | Outpatient (REF) | payer MEDICARE, BC ==
[~2021-02-23] MED LIST changes: +GABA-282 PO; -GABA-843 PO; +LISI10TA22 PO; -LISI10TA4 PO
[2021-02-23 11:37] LABS: BASO % 0.6 % (0.0-1.0); EOS # 0.5 10^3/uL (0.0-0.5); EOS % 6.5 % (0.0-3.0); HEMATOCRIT 41.7 % (36.0-47.0); HEMOGLOBIN 13.3 g/dl (12.0-15.5); LYMPH # 1.6 10^3/uL (1.5-5.0); MEAN CORPUSCULAR HEMOGLOBIN 32.2 pg (27.0-33.0); MEAN CORPUSCULAR HGB CONC 31.9 g/dl (32.0-36.5); MONO # 0.7 10^3/uL (0.0-0.8); MONO % 10.5 % (2.0-8.0); NEUTROPHILS # 4.2 10^3/uL (1.5-8.5); NEUTROPHILS % 59.1 % (36.0-66.0); PLATELET COUNT, AUTOMATED 224 10^3/uL (150-450); RED BLOOD COUNT 4.13 10^6/uL (4.00-5.40); WHITE BLOOD COUNT 7.1 10^3/uL (4.0-10.0)
[2021-02-23 12:46] LABS: ALBUMIN 3.6 GM/DL (3.2-5.2); ALT/SGPT 24 U/L (12-78); BILIRUBIN,TOTAL 0.4 MG/DL (0.2-1.0); BLOOD UREA NITROGEN 20 MG/DL (7-18); CALCIUM LEVEL 8.7 MG/DL (8.8-10.2); CARBON DIOXIDE LEVEL 29 MEQ/L (21-32); CHLORIDE LEVEL 105 MEQ/L (98-107); CHOLESTEROL LEVEL 148 MG/DL (<200); CHOLESTEROL RISK RATIO 4.933 (<5); CREATININE FOR GFR 0.64 MG/DL (0.55-1.30); GLOMERULAR FILTRATION RATE > 60.0 (>39); GLUCOSE, FASTING 94 MG/DL (70-100); HDL CHOLESTEROL 30 MG/DL (>40); LDL CHOLESTEROL 70 MG/DL (<100); NON-HDL-C 118 MG/DL; POTASSIUM SERUM 4.8 MEQ/L (3.5-5.1); SODIUM LEVEL 141 MEQ/L (136-145); TOTAL PROTEIN 6.8 GM/DL (6.4-8.2); TRIGLYCERIDES LEVEL 239 MG/DL (<150)
== END ==
LOC: M SFHCCLAY 09:20
PROVIDERS: ATTEND Family Medicine
DX: I10 Essential (primary) hypertension (principal)

== ENCOUNTER → 2021-02-23 | Outpatient (CLI) | payer MEDICARE, BC ==
--- NOTE | 2021-02-24 07:04 | REP ---
INDICATION: I10, HTN R05, COUGH COMPARISON: 03/03/2018 TECHNIQUE: PA and lateral. FINDINGS: The mediastinum and cardiac silhouette are normal. The lung gill demonstrate chronic interstitial changes without acute consolidation, effusion, or pneumothorax. The skeletal structures are intact and normal. IMPRESSION: No acute cardiopulmonary process. <Electronically signed by Rodri Connell > 02/24/21 0700
== END ==
LOC: M CLY 09:31
PROVIDERS: ATTEND Family Medicine
DX: R05 Cough (principal); I10 Essential (primary) hypertension
CPT/HCPCS: 71046; 80053; 80061; 85025; G0463

== ENCOUNTER → 2021-03-29 | Outpatient (CLI) | payer MEDICARE, BC ==
--- NOTE | 2021-03-29 11:11 | DEXAMM ---
INDICATION: EVALUATE FOR OSTEOPENIA. COMPARISON: Comparison study is from June 24, 2014.. TECHNIQUE: Bone density was measured using dual-energy x-ray absorptionmetry (DEXA). FINDINGS: AP SPINE L1-L4 BMD 1.447 g/cm2 Young Adult T-Score 2.1 Age Matched Z-Score 3.8. LT FEMUR, TOTAL BMD 0.951 g/cm2 Young Adult T-Score -0.4 Age Matched Z-Score 1.2. LT NECK BMD 0.894 g/cm2 Young Adult T-Score -1.0 Age Matched Z-Score 0.8. RT FEMUR, TOTAL BMD 0.940 g/cm2 Young Adult T-Score -0.5 Age Matched Z-Score 1.2. RT NECK BMD 0.936 g/cm2 Young Adult T-Score -0.7 Age Matched Z-Score 1.1. IMPRESSION: There is normal bone density of the spine. There is normal bone density of the left hip. There is normal bone density of the right hip. The density of the spine has increased 1.6% since the initial exam on June 24, 2014. The density of the left hip has decreased 13.8% since initial exam on June 24, 2014. The density of the right hip has decreased 16.5% since the initial exam on June 24, 2014. FOLLOW-UP: Recommendation for the next bone density exam: 5 years. <Electronically signed by Mg Miramontes > 03/29/21 1108
== END ==
LOC: M WHC 10:23
PROVIDERS: ATTEND Internal Medicine Medical Oncology
DX: C50.419 Malignant neoplasm of upper-outer quadrant of unspecified female breast (principal); C50.519 Malignant neoplasm of lower-outer quadrant of unspecified female breast; D64.9 Anemia, unspecified

== ENCOUNTER → 2021-06-09 | Outpatient (CLI) | payer MEDICARE, BC ==
--- NOTE | 2021-06-09 14:08 | REP ---
INDICATION: SCREENING MAMMO. COMPARISON: Multiple prior screening examinations, the most recent, 06/03/2020. TECHNIQUE: Digital screening (2D) mammography was performed bilaterally in the CC and MLO projections. Additionally, breast tomosynthesis (3D mammography) was performed bilaterally in the CC and MLO projections. FINDINGS: The patient has a history of bilateral breast cancer with partial mastectomy and axillary lymph node dissection and radiation. The patient has no breast complaints at this time. The Volpara volumetric breast density pattern is b, there are scattered areas of fibroglandular density. There is stable architectural distortion, dystrophic calcifications and trabecular thickening in the partial mastectomy sites, bilaterally. Additionally, there is diffuse trabecular thickening and skin thickening, bilaterally. There are surgical clips in the partial mastectomy site an axillary lymph node dissection site, seen on the left. There are no suspicious calcifications, dominant masses, new areas of architectural distortion or developing asymmetry is a in either breast. There is no significant change when compared with the prior examination. IMPRESSION: BIRADS/ACR : Category 2: Benign finding. This mammogram was interpreted with the aid of an FDA-approved computer-aided detection system. The patient states she had a clinical breast exam in February 2021. The patient letter being requested is M2. RECOMMENDATION: Repeat screening mammography recommended 1 year (for women over 40). <Electronically signed by Alphonse Wilson > 06/09/21 8215
== END ==
LOC: M WHC 11:47
PROVIDERS: ATTEND Family Medicine
DX: Z12.31 Encounter for screening mammogram for malignant neoplasm of breast (principal)

== ENCOUNTER → 2021-06-15 | Outpatient (CLI) | payer MEDICARE, BC | LOC: M LAB 17:38 | PROVIDERS: ATTEND Ophthalmology | DX: I77.6 Arteritis, unspecified (principal) ==

== ENCOUNTER → 2022-06-11 | Outpatient (CLI) | payer MEDICARE, BC | LOC: M WHC 12:08 | PROVIDERS: ATTEND Family Medicine | DX: Z12.31 Encounter for screening mammogram for malignant neoplasm of breast (principal) ==

== ENCOUNTER → 2023-02-14 | Outpatient (REF) | payer MEDICARE, BC ==
[2023-02-14 17:34] LABS: ALBUMIN 3.6 G/DL (3.2-5.2); ALKALINE PHOSPHATASE 86 U/L (46-116); ALT/SGPT 20 U/L (7.0-40); AST/SGOT 19 U/L (<34); BILIRUBIN,TOTAL 0.5 MG/DL (0.3-1.2); BLOOD UREA NITROGEN 16 MG/DL (9-23); CALCIUM LEVEL 8.7 MG/DL (8.3-10.6); CARBON DIOXIDE LEVEL 29 MMOL/L (20-31); CHLORIDE LEVEL 105 MMOL/L (98-107); CREATININE FOR GFR 0.71 MG/DL (0.55-1.30); FREE T4 0.88 NG/DL (0.89-1.76); GLOMERULAR FILTRATION RATE > 60.0 (>39); GLUCOSE, FASTING 88 MG/DL (74-106); POTASSIUM SERUM 4.5 MMOL/L (3.5-5.1); SODIUM LEVEL 139 MMOL/L (136-145); TOTAL PROTEIN 6.5 G/DL (5.7-8.2); TOTAL T3 119.1 NG/DL (60.0-181.0)
[2023-02-14 17:35] LABS: THYROID STIMULATING HORMONE 2.002 uIU/ML (0.55-4.78)
== END ==
LOC: M SFHCCLAY 14:05
PROVIDERS: ATTEND Family Medicine
DX: E04.9 Nontoxic goiter, unspecified (principal)

== ENCOUNTER → 2023-05-22 | Outpatient (CLI) | payer MEDICARE, BC | LOC: M CLY 14:21 | PROVIDERS: ATTEND Family Medicine | DX: I51.7 Cardiomegaly (principal); R05.2 Subacute cough ==

== ENCOUNTER → 2024-03-02 | Outpatient (REF) | payer MEDICARE, BC ==
[2024-03-02 18:06] LABS: HEMATOCRIT 41.7 % (36.0-47.0); HEMOGLOBIN 13.4 g/dl (12.0-15.5); MEAN CORPUSCULAR HEMOGLOBIN 31.2 pg (27.0-33.0); MEAN CORPUSCULAR HGB CONC 32.1 g/dl (32.0-36.5); MEAN CORPUSCULAR VOLUME 97.2 fl (80.0-96.0); PLATELET COUNT, AUTOMATED 201 10^3/uL (150-450); RED BLOOD COUNT 4.29 10^6/uL (4.00-5.40); WHITE BLOOD COUNT 8.6 10^3/uL (4.0-10.0)
[2024-03-02 18:23] LABS: THYROID STIMULATING HORMONE 2.606 uIU/ML (0.55-4.78)
[2024-03-02 18:26] LABS: ALBUMIN 3.1 G/DL (3.2-5.2); ALKALINE PHOSPHATASE 172 U/L (46-116); ALT/SGPT 34 U/L (7.0-40); AST/SGOT 27 U/L (<34); BILIRUBIN,TOTAL 0.4 MG/DL (0.3-1.2); BLOOD UREA NITROGEN 15 MG/DL (9-23); CALCIUM LEVEL 8.5 MG/DL (8.3-10.6); CARBON DIOXIDE LEVEL 32 MMOL/L (20-31); CHLORIDE LEVEL 103 MMOL/L (98-107); CREATININE FOR GFR 0.62 MG/DL (0.55-1.30); GLOMERULAR FILTRATION RATE > 60.0 (>39); GLUCOSE, FASTING 92 MG/DL (74-106); IRON (FE) 67 UG/DL (50-170); POTASSIUM SERUM 4.7 MMOL/L (3.5-5.1); SODIUM LEVEL 139 MMOL/L (136-145); TOTAL PROTEIN 6.2 G/DL (5.7-8.2)
== END ==
LOC: M SFHCCLAY 11:05
PROVIDERS: ATTEND Family Medicine
DX: D64.9 Anemia, unspecified (principal); E04.9 Nontoxic goiter, unspecified; I10 Essential (primary) hypertension

== ENCOUNTER → 2024-04-23 | Outpatient (CLI) | payer MEDICARE, BC | LOC: M CLY 10:25 | PROVIDERS: ATTEND Family Medicine | DX: R05.3 Chronic cough (principal); I27.20 Pulmonary hypertension, unspecified ==

== ENCOUNTER → 2024-06-15 | Outpatient (CLI) | payer MEDICARE, BC ==
[~2024-06-15] MED LIST changes: +GABA-1172 PO; -GABA-282 PO
== END ==
LOC: M WHC 14:10
PROVIDERS: ATTEND Family Medicine
DX: Z12.31 Encounter for screening mammogram for malignant neoplasm of breast (principal); R92.323 Mammographic fibroglandular density, bilateral breasts

== ENCOUNTER → 2025-04-15 | Outpatient (CLI) | payer MEDICARE, BC | LOC: M CLY 11:49 | PROVIDERS: ATTEND Family Medicine | DX: Z53.9 Procedure and treatment not carried out, unspecified reason (principal) ==

== ENCOUNTER → 2025-04-15 | Outpatient (CLI) | payer MEDICARE, BC | LOC: M CLY 11:44 | PROVIDERS: ATTEND Family Medicine | DX: M47.22 Other spondylosis with radiculopathy, cervical region (principal) ==

== ENCOUNTER → 2025-06-07 | Outpatient (REF) | payer MEDICARE, BC ==
[2025-06-07 18:02] LABS: APPEARANCE, URINE HAZY (CLEAR); BACTERIA, URINE AUTO NEGATIVE (NEGATIVE); BILIRUBIN, URINE AUTO NEGATIVE (NEGATIVE); BLOOD, URINE BLOOD NEGATIVE (NEGATIVE); GLUCOSE, URINE (UA) AUTO NEGATIVE (NEGATIVE); KETONE, URINE AUTO NEGATIVE (NEGATIVE); LEUKOCYTE ESTERASE, URINE AUTO 2+ (NEGATIVE); MUCUS, URINE SMALL (NEGATIVE); NITRITE, URINE AUTO NEGATIVE (NEGATIVE); PROTEIN, URINE AUTO NEGATIVE (NEGATIVE); RBC, URINE AUTO 1 /HPF (0-3); SPECIFIC GRAVITY URINE AUTO 1.014 (1.002-1.035); SQUAMOUS EPITHELIAL CELL UR AU 4 /HPF (0-6); UROBILINOGEN, URINE AUTO 0.2 mg/dL (0.0-2.0); WBC, URINE AUTO 11 /HPF (0-3)
== END ==
LOC: M SFHCCLAY 17:07
PROVIDERS: ATTEND Family Medicine
DX: R30.0 Dysuria (principal)

== ENCOUNTER → 2025-06-16 | Outpatient (CLI) | payer MEDICARE, BC | LOC: M WHC 12:41 | PROVIDERS: ATTEND Family Medicine | DX: Z12.31 Encounter for screening mammogram for malignant neoplasm of breast (principal) ==